=== PATIENT | female | born 1995 | race Caucasian/White ===

== ENCOUNTER 2016-11-13 22:12 | Emergency (ER) | payer SELFPAY ==
[2016-11-13 23:50] VITALS: RESP 16; TEMP 98.3; BMI 26.2
--- NOTE | 2016-11-14 01:36 | ED PDOC ---
Arrival/HPI <Magdy Pollack - Last Filed: 11/14/16 01:54> - General Historian: Patient <Shelli Montiel - Last Filed: 11/14/16 02:04> - General Chief Complaint: ENT Problem Time Seen by Provider: 11/14/16 00:41 - History of Present Illness Narrative History of Present Illness (Text): 11/14/16 01:39 21-year-old female presents today with a 5 day history of right ear pain. Patient states she's been taking [id number] eardrops without improvement in her symptoms. No fevers or chills. Denies sore throat. Denies nasal congestion. Denies sick contacts at home. Patient describes the pain as a throbbing sensation. Patient states she can't sleep at night due to the severe pain in the right ear. Denies decreased hearing. No other complaints (Shelli Montiel) Past Medical History - Provider Review Nursing Documentation Reviewed: Yes - Travel History Have you recently traveled outside [place] w/in the past 3 mons?: No - Past History Past History: No Previous - Infectious Disease Hx of Infectious Diseases: None - Tetanus Immunization Tetanus Immunization: Up to Date - Past Medical History Past Medical History: No Previous - Cardiac Hx Cardiac Disorders: No - Pulmonary Hx Respiratory Disorders: No - Endocrine/Metabolic Hx Diabetes Mellitus Type 1: No Hx Diabetes Mellitus Type 2: No - Musculoskeletal/Rheumatological Hx Musculoskeletal Disorders: No - Gastrointestinal Hx Gastrointestinal Disorders: No - Psychiatric Hx Depression: No Hx Emotional Abuse: No Hx Substance Use: No - Past Surgical History Past Surgical History: No Previous - Anesthesia Hx Anesthesia: No - Suicidal Assessment Feels Threatened In Home Enviroment: No <Shelli Montiel - Last Filed: 11/14/16 02:04> Family/Social History - Physician Review Nursing Documentation Reviewed: Yes Family/Social History: Unknown Family HX Smoking Status: Never Smoked Hx Alcohol Use: No Hx Substance Use: No Hx Substance Use Treatment: No <Shelli Montiel - Last Filed: 11/14/16 02:04> Allergies/Home Meds <Magdy Pollack - Last Filed: 11/14/16 01:54> <Shelli Montiel - Last Filed: 11/14/16 02:04> Allergies/Adverse Reactions: Allergies No Known Allergies Allergy (Verified 02/02/15 21:22) Home Medications: Home Meds Medication Instructions Recorded Confirmed Ibuprofen [Motrin] 400 mg PO TID PRN 02/02/15 02/02/15 Review of Systems - Review of Systems Constitutional: absent: Fatigue, Fevers ENT: Other (right ear pain). absent: Sore Throat, Sinus Congestion Respiratory: absent: SOB, Cough Cardiovascular: absent: Chest Pain, Palpitations Gastrointestinal: absent: Abdominal Pain, Nausea, Vomiting Skin: absent: Rash, Pruritis Neurological: absent: Headache, Dizziness <Shelli Montiel - Last Filed: 11/14/16 02:04> Physical Exam Vital Signs Reviewed: Yes Temperature: Afebrile Blood Pressure: Normal Pulse: Regular Respiratory Rate: Normal Appearance: Positive for: Well-Appearing, Non-Toxic, Comfortable Pain Distress: None Mental Status: Positive for: Alert and Oriented X 3 - Systems Exam Head: Present: Atraumatic Conjunctiva: Present: Normal Ears: Present: Erythema, Other (right ear; + pinna pull, + tragal tug, + canal edema, tm obstructed by Cerumen; no mastoid tenderness or erythema. ). No: NORMAL TM, Normal Canal, TM Perf Mouth: Present: Moist Mucous Membranes Pharnyx: Present: Normal. No: ERYTHEMA, EXUDATE Nose (External): Present: Atraumatic Nose (Internal): Present: Normal Inspection Neck: Present: Normal Range of Motion, Trachea Midline. No: Lymphadenopathy Respiratory/Chest: Present: Clear to Auscultation, Good Air Exchange. No: Respiratory Distress, Accessory Muscle Use Cardiovascular: Present: Regular Rate and Rhythm, Normal S1, S2. No: Murmurs Neurological: Present: GCS=15 Skin: Present: Warm, Dry, Normal Color. No: Rashes Psychiatric: Present: Alert, Oriented x 3 <Shelli Montiel - Last Filed: 11/14/16 02:04> Vital Signs Temp Pulse Resp BP Pulse Ox 11/13/16 23:49 98.3 F 89 16 128/86 100 Medical Decision Making <Magdy Pollack - Last Filed: 11/14/16 01:54> <Shelli Montiel - Last Filed: 11/14/16 02:04> ED Course and Treatment: 11/14/16 01:38 Patient is nontoxic well appearing in no distress. Vital signs are stable. 5 day history of right ear pain Toradol Amoxicillin I advised follow up with primary care physician within the next 2 days, advised to increase fluids take medications as prescribed and return if symptoms worsen persist or if new symptoms develop Patient verbalizes understanding of discharge instructions and need for immediate followup. all aspects of this case were discussed the attending of record. IMPRESSION; otitis media, otitis externa Motrin every 6 hours as needed for pain/fever reduction Increase fluids amoxicillin; 3 times dailyx 10 days Cortisporin otic; 3 times dailyx 7 days Follow up primary care physician within the next 2 days Follow up with the ENT specialist within the next 2 days. Return if symptoms worsen persist or if the symptoms develop (Shelli Montiel) - Medication Orders Current Medication Orders: Discontinued Medications Amoxicillin (Amoxil 500 Mg Cap) 500 mg PO STAT STA PRN Reason: Protocol Stop: 11/14/16 01:17 Last Admin: 11/14/16 01:47 Dose: 500 MG Ketorolac Tromethamine (Toradol) 60 mg IM STAT STA Stop: 11/14/16 01:17 Last Admin: 11/14/16 01:47 Dose: 60 MG IM Administration Charges Document 11/14/16 01:47 YP (Rec: 11/14/16 01:47 YP [id number]) Injection Site MAR Injection Site Right Gluteus Tian Charges for Administration # of IM Administrations 1 - PA / EMPLOYMENT COORDINATOR / Resident Statement / has reviewed & agrees with the documentation as recorded. <Magdy Pollack - Last Filed: 11/14/16 01:54> Disposition/Present on Arrival <Magdy Pollack - Last Filed: 11/14/16 01:54> - Present on Arrival Any Indicators Present on Arrival: No History of DVT/PE: No History of Uncontrolled Diabetes: No Urinary Catheter: No History of Decub. Ulcer: No History Surgical Site Infection Following: None - Disposition Have Diagnosis and Disposition been Completed?: Yes Disposition Time: Patient Plan: Discharge <Shelli Montiel - Last Filed: 11/14/16 02:04> - Disposition Diagnosis: Otitis media, Otitis externa Disposition: HOME/ ROUTINE Condition: GOOD Discharge Instructions (ExitCare): Otitis Media (ED), Otitis Externa (ED) Additional Instructions: Motrin every 6 hours as needed for pain/fever reduction Increase fluids amoxicillin; 3 times dailyx 10 days Cortisporin otic; 3 times dailyx 7 days Follow up primary care physician within the next 2 days Follow up with the ENT specialist within the next 2 days. Return if symptoms worsen persist or if the symptoms develop Prescriptions: Amoxicillin 500 mg PO TID #30 tab Neomycin/Polymyxin/Hydrocortis [Cortisporin Otic Susp] 4 drop AD QID #1 bottle Ibuprofen [Motrin] 600 mg PO Q6H PRN #20 tab PRN Reason: pain/fever reduction Referrals: Tai Long DO [Staff Provider] - [place] up with primary [facility] [place] - Follow up with primary Forms: WORK NOTE
[2016-11-14 03:04] VITALS: BP 123/69; PULSE 71; O2SAT 99
== END 2016-11-14 03:03 | disposition home or self-care (01) ==
LOC: ED 22:12
DX: H66.91 Otitis media, unspecified, right ear (principal); H60.91 Unspecified otitis externa, right ear
CPT/HCPCS: 96372; 99283; J1885